=== PATIENT | female | born 1945 | race Caucasian/White ===

== ENCOUNTER 2019-10-31 19:39 | Emergency (ER) | payer MEDICARE ==
[~2019-10-31] VITALS: Ht 152.4 cm; Wt 49.1 kg
[~2019-10-31 19:39] MED LIST: AMOX-291 PO; AMOX1TAB12 PO; ASPI-515 PO; ATOR10TA PO; CLON1TAB11 PO; CLOP75TA52 PO; FERR325T18 PO; LISI-170 PO; METO-93 PO; VENL150T PO
--- NOTE | 2019-10-31 21:29 | NUR ---
PT C/O RIGHT NECK AND SHOULDER PAIN X1DAY, GOT WORSE TODAY. CONNECTED TO MONITORING. CALL LIGHT IN REACH. MD AT BEDSIDE. AWAITING ORDERS AT THIS TIME.
[2019-10-31] MEDS ORDERED: SERT100T PO (21:35)
[2019-10-31] MEDS ORDERED: TRAZ-175 PO (21:35)
[2019-10-31] MEDS ORDERED: AMLO5TAB10 PO (21:35)
[2019-10-31] MEDS ORDERED: LISI40TA PO (21:35)
[2019-10-31] MEDS ORDERED: HYDR-3241 PO (21:35)
[2019-10-31] MEDS ORDERED: BUSPIRONE (21:35)
--- NOTE | 2019-10-31 21:46 | NUR ---
IV START. LABS DRAWN AND SENT TO LAB. XRAY AT BEDSIDE.
[2019-10-31] MEDS ORDERED: DIAZEPAM 5 MG/ML, 2ML ONE (21:48)
[2019-10-31] MEDS ORDERED: KETOROLAC 30 MG/1 ML ONE (21:48)
[2019-10-31] MEDS ORDERED: LIDODERM 5% PATCH TD ONE ×2 (21:48→22:00)
[2019-10-31] MEDS ORDERED: ACETAMINOPHEN 500 MG TABLET ONE (21:48)
[2019-10-31 21:51] LABS: BASOPHILS # (AUTO) 0.06 x10^3/uL (0-0.1); BASOPHILS % (AUTO) 1 % (0-1); EOSINOPHILS # (AUTO) 0.42 x10^3/uL (0-0.4); EOSINOPHILS % (AUTO) 6 % (1-7); LYMPHOCYTES # (AUTO) 3.15 x10^3/uL (1-3.4); LYMPHOCYTES % (AUTO) 41 % (22-44); MD NO; MEAN CORPUSCULAR HEMOGLOBIN 32.2 pg (27.0-34.8); MEAN CORPUSCULAR HGB CONC 34.1 g/dL (32.4-35.8); MEAN CORPUSCULAR VOLUME 94.7 fL (80-100); MEAN PLATELET VOLUME 7.1 fL (7.4-10.4); MONOCYTES # (AUTO) 0.72 x10^3/uL (0.2-0.8); MONOCYTES % (AUTO) 9 % (2-9); NEUTROPHILS # (AUTO) 3.42 x10^3/uL (1.8-6.8); NEUTROPHILS % (AUTO) 44 % (42-75); PLATELET COUNT 268 x10^3/uL (130-400); RED BLOOD COUNT 4.15 x10^6/uL (3.82-5.3); RED CELL DISTRIBUTION WIDTH 13.1 % (9.6-15.2)
[2019-10-31] MEDS ORDERED: DIAZEPAM 5 MG/ML, 2ML IV ONE (22:00)
[2019-10-31] MEDS ORDERED: ACETAMINOPHEN 500 MG TABLET PO ONE (22:00)
[2019-10-31] MEDS ORDERED: KETOROLAC 30 MG/1 ML IVPush ONE (22:00)
--- NOTE | 2019-10-31 22:00 | NUR ---
MEDS ADMIN PER NOV. PT CONNECTED TO ALL MONITORING. PT FEELING RELIEF OF MUSCLE SPASM. AT BEDSIDE.
[2019-10-31 22:01] LABS: ALBUMIN 4.1 g/dL (3.4-5.0); ANION GAP 3 mmol/L (5-15); CALCIUM 8.9 mg/dL (8.5-10.1); CHLORIDE 107 mmol/L (98-107); CREATININE 1.22 mg/dL (0.55-1.02)
[2019-10-31 22:05] LABS: TROPONIN I < 0.015 ng/mL (0.000-0.045)
--- NOTE | 2019-10-31 22:17 | NUR ---
ALL RESULTS ARE BACK AT THIS TIME. CHART UP FOR RECHECK.
[2019-10-31 22:55] VITALS: BP 133/57
--- NOTE | 2019-10-31 22:55 | NUR ---
PT RESTING COMFORTABLY ON GURNEY. LUIS ALBERTO. AT BEDSIDE.
--- NOTE | 2019-10-31 23:01 | NUR ---
MD AT BEDSIDE TO UPDATE PT ON POC.
[2019-11-01] MEDS ORDERED: LIDODERM REMOVE PATCH NOTE XX SCH (10:00)
== END 2019-10-31 23:58 | disposition home or self-care (01) ==
LOC: ED 22:39
DX: S16.1XXA Strain of muscle, fascia and tendon at neck level, initial encounter (principal); F17.200 Nicotine dependence, unspecified, uncomplicated; R00.0 Tachycardia, unspecified; I73.9 Peripheral vascular disease, unspecified; R07.89 Other chest pain; Z86.73 Personal history of transient ischemic attack (TIA), and cerebral infarction without residual deficits; X58.XXXA Exposure to other specified factors, initial encounter; Y93.89 Activity, other specified; Y92.89 Other specified places as the place of occurrence of the external cause; Y99.8 Other external cause status
CPT/HCPCS: 36415; 71045; 80048; 82040; 84484; 85025; 93005; 96374; 96375; 99284; J1885; J3360